=== PATIENT | male | born 1995 | race African-American/Black ===

== ENCOUNTER 2019-09-29 21:35 | Emergency (ER) | payer SELFPAY ==
[~2019-09-29] VITALS: Ht 167.6 cm; Wt 59.9 kg
[2019-09-29 22:13] VITALS: BP 125/67
--- NOTE | 2019-09-29 22:14 | NUR ---
ED Nurse Note: Patient walked in to ER with lac on R eyebrow, hit on a wall, denies LOC, pain 6/10. Patient presented calm, AAO x4, VSS at this time.
--- NOTE | 2019-09-29 22:30 | Emergency Room Report ---
History of Present Illness General Chief Complaint: Laceration Source: Patient Present Illness [facility] This is a 24-year-old male with no past medical history. He presents with complaint of laceration to his right eyebrow. He was skateboarding and turned a corner and ran into a wall. He complained of laceration to the medial aspect of the right eyebrow. No loss of consciousness. This occurred just prior to arrival. No other injury. Denies any fever chills but denies any nausea or vomiting. No focal deficit. Allergies: Coded Allergies: No Known Allergies (Unverified , 09/29/19) Patient History Past Medical History: none, see triage record, old chart reviewed Past Surgical History: none Pertinent Family History: none Social History: Denies: smoking Immunizations: UTD Reviewed Nursing Documentation: PMH: Agreed; PSxH: Agreed Nursing Documentation-PMH Past Medical History: No History, Except For Hx Asthma: Yes Review of Systems Eye: Denies: eye pain, blurred vision ENT: Denies: ear pain, nose congestion, throat swelling Respiratory: Denies: cough, shortness of breath Cardiovascular: Denies: chest pain, palpitations Gastrointestinal: Denies: abdominal pain, diarrhea, nausea, vomiting Musculoskeletal: Denies: back pain, joint pain Skin: Denies: rash Neurological: Denies: headache, numbness Endocrine: Denies: increased thirst, increased urine Hematologic/Lymphatic: Denies: easy bruising All Other Systems: negative except mentioned in HPI Physical Exam Vital Signs Date Time Temp Pulse Resp B/P (MAP) Pulse Ox O2 Delivery O2 Flow Rate FiO2 09/29/19 21:48 98.4 69 18 125/67 (86) 97 Room Air Vitals normal Sp02 EP Interpretation: reviewed, normal General Appearance: well appearing, no apparent distress, alert Head: normocephalic, other - Right forehead abrasion Eyes: right eye other - Right medial aspect of eyebrow with 2 cm laceration. No foreign body.; bilateral eye PERRL, bilateral eye EOMI ENT: hearing grossly normal, normal pharynx Neck: full range of motion, supple, no meningismus Respiratory: chest non-tender, lungs clear, normal breath sounds Cardiovascular #1: regular rate, rhythm, no murmur Gastrointestinal: normal bowel sounds, non tender, no mass, no organomegaly, no bruit, non-distended Musculoskeletal: back normal, normal range of motion, gait/station normal Psychiatric: mood/affect normal Procedures Laceration/Wound Repair Laceration/Wound Repair : Consent: Verbal Wound Location: face Wound's Depth, Shape: into muscle, linear Wound Length (cm): 2 Wound Explored: clean Irrigated w/ Saline (ccs): 500 Anesthesia: 1% Lidocaine Volume Anesthetic (ccs): 1 Wound Repaired With: sutures Suture Size/Type: 5:0, other - Vicryl, rapid Number of Sutures: 3 Patient Tolerated: Well Complications: None Medical Decision Making Diagnostic Impression: Primary Impression: Laceration ER Course Patient with soft tissue injury. No evidence of intracranial bleed or skull fracture based on clinical exam and mechanism of injury. Will discharge home. Last Vital Signs Date Time Temp Pulse Resp B/P (MAP) Pulse Ox O2 Delivery O2 Flow Rate FiO2 09/29/19 22:13 98.4 18 125/67 97 Room Air 09/29/19 21:48 69 Status: improved Disposition: HOME, SELF-CARE Condition: Stable Patient Instructions: Laceration Care, Adult Additional Instructions: Keep wound clean. Suture will fall off. Follow-up with in 7 days as needed. Return if worse. Avi Devries MD Sep 29, 2019 22:30
[2019-09-29 22:35] VITALS: BP 125/67
--- NOTE | 2019-09-29 22:35 | NUR ---
ER DISCHARGE NOTE: Patient is cleared to be discharged per ERMD, pt is aox4, on room air, with stable vital signs. pt was given dc instructions, pt was able to verbalize understanding, pt id band removed without complications. pt is able to ambulate with steady gait. pt took all belongings.
== END 2019-09-29 22:35 | disposition home or self-care (01) ==
LOC: EMR 22:04
DX: S01.111A Laceration without foreign body of right eyelid and periocular area, initial encounter (principal); J45.909 Unspecified asthma, uncomplicated; W22.8XXA Striking against or struck by other objects, initial encounter; Y93.51 Activity, roller skating (inline) and skateboarding; Y92.9 Unspecified place or not applicable
CPT/HCPCS: 99283

== ENCOUNTER 2020-04-20 19:41 | Emergency (ER) | payer SELFPAY ==
[~2020-04-20] VITALS: Ht 167.6 cm; Wt 65.8 kg
--- NOTE | 2020-04-20 19:50 | Emergency Room Report ---
History of Present Illness General Chief Complaint: Upper Extremity Injury Source: Patient Present Illness HPI 24-year-old male RHD complains of left shoulder pain after slipping off skateboard 1 month ago. Denies head trauma, neck pain, loss of consciousness, headache, vision changes, focal weakness, paresthesias, tingling, SOB, rash, abdominal/back/wrist/elbow/ chest/flank pain, or any other symptoms. He states that he did not initially come after his fall one month ago because he thought that the bone was just bruised and it would get better with time. Has not tried meds at home to alleviate his symptoms. The patient's symptoms were gradual onset, severity was moderate, duration since chronic, 30 days. Quality: Aching Past medical history: Denies Past surgical history: Hernia repair at the age of 17 Smoking: Denies Alcohol use: Denies Drug use: Denies Review of systems: CONST: No fevers or chills, No night sweats PULMONARY: No productive cough, No shortness of breath CARDIAC: No chest pain, No palpitations GI: No vomiting, No diarrhea , No melena_or_BRBPR : No dysuria, No hematuria, No discharge NEURO: No new_focal_weakness_or_numbness, No confusion, No vision changes 14 point Review of Systems is otherwise negative except per HPI Physical Exam: GENERAL: Awake_alert_ nontoxic, no acute distress Spo2 100% on RA -normal EYES: Extraocular muscles are intact. Conjunctivae clear. Lids without swelling ENT: External nose and ear normal_in_appearance. Oropharynx clear. Head_ atraumatic, Moist_oral_mucosa NECK: No JVD. No meningismus. No thyromegaly. Supple. Trachea midline RESP: Normal respiratory effort. Symmetric rise. No stridor. Clear_to_ auscultation_No_rales_No_wheezes CARDIAC: Regular rate and regular rhytm. No_significant pedal edema. ABDOMEN: Soft. Nondistended. Nontender_No_rebound_or_guarding. MSK: Normal muscle tone, without rigidity. Extremities without asymmetric deformity or swelling. Mild TTP of left bicep. Full passive and active ROM in L shoulder, although he has mild difficulty with shoulder extension beyond 120degrees 2/2 pain. Compartments are soft and compressible. Radial pulses plus 2 out of 4 bilaterally. Hands: Intact AIN/PIN/median/radial/ulnar nerve distribution bilaterally. Wrist: No snuffbox TTP bilaterally Sensation intact light touch SKIN: Warm and dry. No visible cyanosis or pallor NEUROLOGIC: Alert, oriented x3. Motor_and_sensation_grossly_intact. No truncal ataxia. Gait_normal Psych: Normal mood and affect, normal judgment and insight - COORDINATION OF CARE Case was discussed with: Patient Any imaging that was ordered were interpreted as part of the medical decision making: Medical Decision Making/Plan: Differential diagnosis includes musculoskeletal pain, fracture, dislocation, DOUBT compartment syndrome, arterial occlusion, nerve damage, among others. Pt is well appearing with stable vitals. He is here with chronic L shoulder pain s/p skateboarding fall 1 month ago. He is noted to have bicep/deltoid hypertonicity on palpation, but no gross deformity. ROM is intact. Radial pulse is strong and symmetric. Distally the patient has capillary refill <2 seconds. There is no pallor or pain out of proportion to exam. No evidence of arterial occlusion or injury. The associated joints have full range of motion without any significant pain or restriction in mobility. No evidence at this time of major ligamentous disruption. Xrays of the L shoulder, chest, and humeres show no acute fx or dislocation. Suspect that patient has shoulder pain 2/2 muscle spasm vs bone contusion. It is possible that he has incomplete labral tear but there is no clinical evidence of dislocation at this time.. I have educated instructed him to F/U with PMD as outpatient for MRI if he continues to have symptoms within 1 week. Pt will be discharged with t#3 and isisaxin for his pain. He has been instructed not to drive/operate heavy machinery while taking them as they can be sedating Pertinent results reviewed with the patient. I educated the patient on the current treatment plan including the risks, benefits, and alternatives. I also discussed the extent and limitations of the current evaluation. The patient expressed understanding and agreement with plan. I recommended PMD follow-up within 1-2 days. Also advised that the patient return to the Emergency Department as soon as possible if they experience any new, persistent, or worsening symptoms. 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 COVID-19 Screening: Negative COVID-19 COVID-19 Testing Source: @ [facility] on 01/2020 Nursing Documentation-[facility] Past Medical History: No Stated History Hx Asthma: Yes Physical Exam Vital Signs Date Time Temp Pulse Resp B/P (MAP) Pulse Ox O2 Delivery O2 Flow Rate FiO2 04/20/20 19:45 98.1 77 18 134/75 (94) 99 Room Air Sp02 EP Interpretation: reviewed, normal Medical Decision Making Diagnostic Impression: Primary Impression: Left shoulder pain Additional Impressions: Contusion Muscle spasm Chest X-Ray Diagnostic Results Chest X-Ray Diagnostic Results : KATERIN Ambrose Shoulder X-ray: Views: 3 view(s) No fracture. Normal alignment. Soft tissues normal. Joint spaces normal. Indication: Pain Impression: no acute disease The X-ray(s) were independently viewed and interpreted contemporaneously - Electronically signed by Billie chávez DO L Humerus X-ray: Views: 2 view(s) No fracture. Normal alignment. Soft tissues normal. Joint spaces normal. Indication: Pain Impression: No acute disease The X-ray(s) were independently viewed and interpreted contemporaneously - Electronically signed by Billie chávez DO Chest X-Ray: Views: 1 view(s) Indication: trauma Findings: Normal heart size. Mediastinum normal. No infiltrate. Impression: NO PTX The X-ray(s) were independently viewed and interpreted contemporaneously Electronically signed by Billie chávez DO Last Vital Signs Date Time Temp Pulse Resp B/P (MAP) Pulse Ox O2 Delivery O2 Flow Rate FiO2 04/20/20 19:45 98.1 77 18 134/75 (94) 99 Room Air Disposition: HOME, SELF-CARE Admit Decision Time: 20:00 Condition: Stable Scripts Acetaminophen With Codeine (T#3) (TYLENOL #3 TAB*) Y Tab 1 TAB ORAL Q8H PRN for For Pain, #20 TAB Prov: Billie Olivarez.O. 04/20/20 Methocarbamol* (ROBAXIN-750*) 750 Mg Tablet 750 MG PO TID, #21 TAB 0 Refills Prov: Billie Olivarez D.OChidi 04/20/20 Patient Instructions: Shoulder Pain, [id number] Additional Instructions: Instructions for patient/asset availability leader: Follow up with your physician in 1-2 days. Do not take robaxin or tylenol #[address] heavy machinery as these are potentially sedating. Follow-up with your doctor sooner if your condition requires a more timely clinical reevaluation. Return to the emergency department immediately if you feel that your condition is worsening or if you have any new or concerning symptoms. Review your discharge instructions and take any prescriptions given as instructed. Since there is always the possibility of X-ray variance, you should get a copy of the final report of your imaging studies from medical records in 2-3 days in case of discrepancy, or you can have your regular doctor obtain these from the hospital. Hairline fractures or occult fractures can also be missed on the first visit so if you are having persistent pain and persistent decreased function after 1 week you should return for repeat evaluation and potentially repeat imaging. Billie Olivarez D.O. Apr 20, 2020 19:50
[2020-04-20 19:56] VITALS: BP 134/75
[2020-04-20] MEDS ORDERED: ACETAMINOPHEN-1 EAC1 ORAL (19:58)
[2020-04-20] MEDS ORDERED: ROBAXIN-750750 MG PO (19:58)
[2020-04-20] MEDS ORDERED: Acetaminophen 500mg (ES) tab ORAL ONE (20:00)
[2020-04-20] MEDS ORDERED: Methocarbamol 750mg tab ORAL ONE (20:00)
--- NOTE | 2020-04-20 21:12 | Diagnostic Imaging Report ---
EXAM: XR Left Humerus, 2 or More Views CLINICAL HISTORY: PAIN, status post fall 4 weeks prior. TECHNIQUE: Frontal and lateral views of the left humerus. COMPARISON: No relevant prior studies available. FINDINGS: Bones/joints: Unremarkable. No acute fracture. No dislocation. Soft tissues: Unremarkable. IMPRESSION: No acute fracture or dislocation.
--- NOTE | 2020-04-20 21:16 | Diagnostic Imaging Report ---
EXAM: XR Left Shoulder Complete, 2 or More Views CLINICAL HISTORY: PAIN TECHNIQUE: Two or more views of the left shoulder. COMPARISON: No relevant prior studies available. FINDINGS: Bones/joints: Unremarkable. No acute fracture. No dislocation. Soft tissues: Unremarkable. IMPRESSION: No acute fracture or dislocation.
[2020-04-20 21:25] VITALS: BP 134/75
--- NOTE | 2020-04-21 11:43 | Diagnostic Imaging Report ---
Procedure: XRAY Chest 1v Reason for study: Chest pain. Comparison films: None. FINDINGS: A single one view chest is obtained. Vascularity is normal. The lung blandon are clear bilaterally. Cardiac and mediastinal silhouette are within normal limits. CP angles are sharp. The bony thorax appear unremarkable. IMPRESSION: NO ACUTE CARDIOPULMONARY DISEASE.
== END 2020-04-20 21:25 | disposition home or self-care (01) ==
LOC: EMR 19:53
DX: M25.512 Pain in left shoulder (principal); T14.8XXA Other injury of unspecified body region, initial encounter; M62.838 Other muscle spasm; V00.131A Fall from skateboard, initial encounter; Y92.9 Unspecified place or not applicable
CPT/HCPCS: 71045; 99284